=== PATIENT | male | born 2000 | race African-American/Black ===

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

== ENCOUNTER 2022-09-25 13:56 | Emergency (ER) | payer MEDICAID ==
[~2022-09-25] VITALS: Ht 175.3 cm; Wt 72.6 kg
[2022-09-25 14:05] VITALS: BP 149/96
[2022-09-25] MEDS ORDERED: levETIRAcetam 1,500 MG in NACL 0.9% 100 ML IV ONE (14:10)
[2022-09-25 14:12] LABS: BASOPHILS # (AUTO) 0.1 K/uL (0.00-0.22); BASOPHILS % (AUTO) 0.4 % (0.0-2.0); EOSINOPHILS % (AUTO) 0.1 % (0.0-4.0); HEMATOCRIT 49.9 % (36-52); HEMOGLOBIN 16.9 g/dL (12.0-18.0); LYMPHOCYTES # (AUTO) 1.8 K/uL (2.0-11.5); LYMPHOCYTES % (AUTO) 14.6 % (20.5-51.1); MEAN CORPUSCULAR HEMOGLOBIN 32 pg (27-31); MEAN CORPUSCULAR HGB CONC 34 g/dL (33-37); MONOCYTES # (AUTO) 0.4 K/uL (0.8-1.0); NEUTROPHILS # (AUTO) 10.3 K/uL (1.8-7.7); NEUTROPHILS % (AUTO) 81.9 % (42.2-75.2); PLATELET COUNT (AUTO) 164 K/uL (140-450); RED BLOOD CELL COUNT(AUTO) 5.36 MIL/uL (4.20-6.10); RED CELL DISTRIBUTION WIDTH 13.5 % (11.6-13.7); WHITE BLOOD COUNT (AUTO) 12.6 K/uL (4.8-10.8)
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
[2022-09-25 14:44] LABS: ANION GAP 18.8 (8-16); CARBON DIOXIDE 24.8 mmol/L (21-32); CREATININE 1.3 mg/dL (0.6-1.3); POTASSIUM 3.6 mmol/L (3.5-5.1)
[2022-09-25 15:00] LABS: BARBITURATE, URINE NEGATIVE ng/ml (NEG <=200); BENZODIAZEPINE, URINE NEGATIVE ng/mL (NEG <=200); CANNABINOID, URINE POSITIVE ng/mL (NEG <=50); COCAINE, URINE NEGATIVE ng/mL (NEG <=300); OPIATE, URINE NEGATIVE ng/mL (NEG <=2000); PHENCYCLIDINE SCREEN,URINE NEGATIVE ng/mL (NEG <=25)
[2022-09-25 15:02] LABS: TOTAL BILIRUBIN 1.4 mg/dL (0.0-1.0)
--- NOTE | 2022-09-25 15:30 | NUR ---
PT SLEEPING, NO AC DISTRESS, NO SZ ACTIVITY, NSR ON CM O2 SAT 98% RA, SR UP TIMES 2 PADDED, DENIES ANY PAIN
[2022-09-25] MEDS ORDERED: KEP500 PO (16:08)
--- NOTE | 2022-09-25 17:00 | NUR ---
Patient discharged with v/s stable. Written and verbal after care instructions given and explained. Patient verbalized understanding. Ambulatory with steady gait. All questions addressed prior to discharge. Advised to follow up with PMD. Masoud'linda ballesteros
[2022-09-25 17:22] VITALS: BP 132/78
== END 2022-09-25 17:00 | disposition home or self-care (01) ==
LOC: MED 13:56
DX: R56.9 Unspecified convulsions (principal); D72.829 Elevated white blood cell count, unspecified; R07.89 Other chest pain; F12.90 Cannabis use, unspecified, uncomplicated; Z91.14 Patient's other noncompliance with medication regimen; R00.0 Tachycardia, unspecified; Z79.899 Other long term (current) drug therapy
CPT/HCPCS: 36415; 71045; 80053; 80305; 85025; 93005; 96360; 99285; J1953; Q0092

== ENCOUNTER 2023-09-07 20:27 | Emergency (ER) | payer MEDICAID ==
[~2023-09-07] VITALS: Ht 177.8 cm; Wt 73.9 kg
[~2023-09-07 20:27] MED LIST: KEP500 PO
[2023-09-07 20:35] VITALS: BP 162/90; PULSE 64; RESP 20; TEMP 98; O2SAT 100
[2023-09-07 21:53] LABS: BASOPHILS # (AUTO) 0.1 K/uL (0.00-0.22); BASOPHILS % (AUTO) 0.6 % (0.0-2.0); EOSINOPHILS % (AUTO) 0.3 % (0.0-4.0); HEMATOCRIT 40.9 % (36-52); HEMOGLOBIN 13.9 g/dL (12.0-18.0); LYMPHOCYTES # (AUTO) 1.9 K/uL (2.0-11.5); LYMPHOCYTES % (AUTO) 22.3 % (20.5-51.1); MEAN CORPUSCULAR HEMOGLOBIN 32 pg (27-31); MEAN CORPUSCULAR HGB CONC 34 g/dL (33-37); MEAN CORPUSCULAR VOLUME 95.5 fL (80-94); MONOCYTES # (AUTO) 0.5 K/uL (0.8-1.0); MONOCYTES % (AUTO) 6.1 % (1.7-9.3); NEUTROPHILS # (AUTO) 6.2 K/uL (1.8-7.7); NEUTROPHILS % (AUTO) 70.7 % (42.2-75.2); PLATELET COUNT (AUTO) 130 K/uL (140-450); RED BLOOD CELL COUNT(AUTO) 4.28 MIL/uL (4.20-6.10); RED CELL DISTRIBUTION WIDTH 13.8 % (11.6-13.7); WHITE BLOOD COUNT (AUTO) 8.7 K/uL (4.8-10.8)
[2023-09-07 22:01] LABS: CALCIUM 8.3 mg/dL (8.5-10.1); CARBON DIOXIDE 29.4 mmol/L (21-32); POTASSIUM 3.4 mmol/L (3.5-5.1)
== END 2023-09-07 22:48 | disposition home or self-care (01) ==
LOC: MED 20:27
DX: G40.89 Other seizures (principal); Z79.899 Other long term (current) drug therapy
CPT/HCPCS: 36415; 71045; 80048; 85025; 93005; 99285